=== PATIENT | male | born 1960 | race Caucasian/White ===

== ENCOUNTER → 2016-08-04 | Outpatient (CLI) | payer BC ==
[~2016-08-04] VITALS: Ht 180.3 cm; Wt 114.1 kg
[~2016-08-04] MED LIST: ALTACE2.5 MG PO; B COMPLEX #11 TA1 PO; BP MED; CARDI-OMEGA1000 MG PO; CHOLESTEROL MED; GLUCOPHAGE PO; GLUCOPHAGE1000 MG PO; HUMALOG; HUMALOG MIX 75/10 ML SQ; HYZAAR 25 MG-101 TAB PO; INDERAL80 MG PO; LANTUS100 U/ML SQ; LEVEMIR SC; LOVAZA1 GM PO; MOTRIN 800800 MG/TAB PO; MVI; NORCO PO; NOVOLOG; OXY IR5 MG PO; SINEMET 25/101 UDTAB PO; TRICOR145 MG PO; VITAMIN D32000 I1 PO; VYTORIN 10 MG-41 TAB PO; ZOFRAN 4MG T4 MG/TAB PO
[2016-08-04 09:14] VITALS: BP 144/90; PULSE 76
[2016-08-04 10:48] VITALS: BP 144/90; PULSE 76
[2016-08-04 11:18] VITALS: BP 144/90; PULSE 76
== END ==
LOC: LIGHT 08:21
DX: F33.8 Other recurrent depressive disorders (principal); E11.9 Type 2 diabetes mellitus without complications; R73.01 Impaired fasting glucose; I10 Essential (primary) hypertension; Z68.35 Body mass index [BMI] 35.0-35.9, adult

== ENCOUNTER → 2016-08-16 | Outpatient (CLI) | payer BC ==
[~2016-08-16] VITALS: Ht 180.3 cm; Wt 115.7 kg
[2016-08-16 14:06] VITALS: BP 150/82; PULSE 80
== END ==
LOC: LIGHT 10:00
DX: Z53.9 Procedure and treatment not carried out, unspecified reason (principal)

== ENCOUNTER → 2016-09-07 | Outpatient (CLI) | payer BC ==
[~2016-09-07] VITALS: Ht 180.3 cm; Wt 116.3 kg
[2016-09-07 14:07] VITALS: BP 160/90; PULSE 72
== END ==
LOC: LIGHT 14:05
DX: F33.8 Other recurrent depressive disorders (principal); E11.9 Type 2 diabetes mellitus without complications; I10 Essential (primary) hypertension; Z68.35 Body mass index [BMI] 35.0-35.9, adult

== ENCOUNTER → 2016-09-14 | Outpatient (CLI) | payer BC | LOC: LIGHT 13:57 | DX: F33.8 Other recurrent depressive disorders (principal); E11.9 Type 2 diabetes mellitus without complications; I10 Essential (primary) hypertension; Z68.35 Body mass index [BMI] 35.0-35.9, adult ==

== ENCOUNTER 2016-09-15 11:46 | Emergency (ER) | payer BC ==
[~2016-09-15] VITALS: Ht 182.9 cm; Wt 113.6 kg
[~2016-09-15 11:46] MED LIST changes: -B COMPLEX #11 TA1 PO; -OXY IR5 MG PO; -ZOFRAN 4MG T4 MG/TAB PO
[2016-09-15 11:47] VITALS: TEMP 97.7
[2016-09-15 12:42] LABS: BASO # 0.1 (0.0-0.2); BASO % 0.8 % (0.0-2.0); EOS # 0.1 (0.0-0.7); EOS % 1.2 % (0-4.0); GRAN % 51.9 % (42.2-75.2); HEMATOCRIT 45.3 % (42.0-52.0); HEMOGLOBIN 16.2 g/dl (13.5-18.0); LYMPH # 2.8 (1.2-3.4); LYMPH % 36.1 % (20.0-51.0); MEAN CELL VOLUME 86 fl (80.0-100.0); MEAN CORPUSCULAR HEMOGLOBIN 31 pg (27.0-31.0); MEAN CORPUSCULAR HGB CONC 36 g/dl (33.0-37.0); MEAN PLATELET VOLUME 10.9 fl (7.4-10.4); MONO # 0.8 (0.1-0.6); MONO % 9.7 % (1.7-9.3); PLATELET COUNT 169 K/mm3 (130-400); REDCELL DISTRIBUTION WIDTH-CV 12.6 % (11.5-14.5); WHITE BLOOD COUNT 7.7 K/mm3 (4.8-10.8)
[2016-09-15 12:59] LABS: ALANINE AMINOTRANSFERASE 84 U/L (21-72); ALBUMIN 4.8 gm/dL (3.5-5.0); ALKALINE PHOSPHATASE 81 U/L (50-136); AMYLASE 75 U/L (30-110); ANION GAP 12 mmol/L (7-16); BILIRUBIN,TOTAL 1.1 mg/dL (0.0-1.0); BLOOD UREA NITROGEN 17 mg/dL (9-20); CALCIUM 9.6 mg/dL (8.4-10.2); CARBON DIOXIDE 28 mmol/L (22-30); CHLORIDE 100 mmol/L (98-107); CREATININE, serum 1.01 mg/dL (0.66-1.25); GLUCOSE 85 mg/dL (74-106); LIPASE 105 U/L (23-300); POTASSIUM 3.9 mmol/L (3.4-5.0); SODIUM 140 mmol/L (137-145); TOTAL PROTEIN 7.6 gm/dL (6.4-8.2)
[2016-09-15 13:11] LABS: TROPONIN-I < 0.012 ng/mL (0.000-0.034)
[2016-09-15] MEDS ORDERED: ZOFRAN 4MG T4 MG/TAB PO (14:26)
[2016-09-15] MEDS ORDERED: OXY IR5 MG PO (14:26)
[2016-09-15 14:38] VITALS: BP 143/91; PULSE 75
[2016-12-14] MEDS ORDERED: B COMPLEX #11 TA1 PO (13:45)
== END 2016-09-15 15:05 | disposition home or self-care (01) ==
LOC: COL.ER 11:46
PROVIDERS: Nurse Practitioner
DX: R10.11 Right upper quadrant pain (principal); R10.12 Left upper quadrant pain; E11.9 Type 2 diabetes mellitus without complications; G20 Parkinson's disease; Z79.84 Long term (current) use of oral hypoglycemic drugs
CPT/HCPCS: J1170; J2405; J2550; J7040; Q9967

== ENCOUNTER → 2016-09-20 | Outpatient (CLI) | payer BC ==
[~2016-09-20] MED LIST changes: +B COMPLEX #11 TA1 PO; +OXY IR5 MG PO; +ZOFRAN 4MG T4 MG/TAB PO
== END ==
LOC: COL.RAD 10:36
DX: R10.11 Right upper quadrant pain (principal)
CPT/HCPCS: A9537; J2805

== ENCOUNTER → 2016-10-12 | Outpatient (CLI) | payer BC ==
[~2016-10-12] VITALS: Ht 181.6 cm; Wt 114.3 kg
[2016-10-12 14:14] VITALS: BP 134/82; PULSE 84
== END ==
LOC: LIGHT 09:57
DX: F33.9 Major depressive disorder, recurrent, unspecified (principal); E11.9 Type 2 diabetes mellitus without complications; I10 Essential (primary) hypertension; Z68.34 Body mass index [BMI] 34.0-34.9, adult

== ENCOUNTER → 2016-12-14 | Outpatient (CLI) | payer BC ==
[~2016-12-14] VITALS: Ht 181.6 cm; Wt 114.3 kg
[2016-12-14 13:46] VITALS: BP 132/96; PULSE 96
== END ==
LOC: LIGHT 11-16 12:17
DX: F33.9 Major depressive disorder, recurrent, unspecified (principal); E11.9 Type 2 diabetes mellitus without complications; I10 Essential (primary) hypertension; Z68.34 Body mass index [BMI] 34.0-34.9, adult; Z71.3 Dietary counseling and surveillance

== ENCOUNTER → 2017-03-15 | Outpatient (CLI) | payer BC ==
[~2017-03-15] VITALS: Ht 181.6 cm; Wt 109.3 kg
[2017-03-15 13:03] VITALS: BP 120/80; PULSE 64
== END ==
LOC: LIGHT 10:05
DX: F33.9 Major depressive disorder, recurrent, unspecified (principal); E11.9 Type 2 diabetes mellitus without complications; R73.01 Impaired fasting glucose; I10 Essential (primary) hypertension; Z68.33 Body mass index [BMI] 33.0-33.9, adult; Z71.3 Dietary counseling and surveillance

== ENCOUNTER 2020-09-30 22:02 | Emergency (ER) | payer OTHER ==
[~2020-09-30] VITALS: Ht 182.9 cm; Wt 99.1 kg
[2020-09-30 22:08] VITALS: TEMP 97.2
[2020-09-30 22:47] VITALS: BP 165/91; PULSE 66
== END 2020-09-30 22:56 | disposition home or self-care (01) ==
LOC: COL.ER 22:02
DX: S05.01XA Injury of conjunctiva and corneal abrasion without foreign body, right eye, initial encounter (principal); E11.9 Type 2 diabetes mellitus without complications; I10 Essential (primary) hypertension; G20 Parkinson's disease; Z79.84 Long term (current) use of oral hypoglycemic drugs; Z79.899 Other long term (current) drug therapy